=== PATIENT | male | born 1995 | race Caucasian/White ===

== ENCOUNTER 2019-08-28 20:31 | Emergency (ER) | payer OTHER ==
[2019-08-28 20:44] VITALS: BP 146/74
[2019-08-28] MEDS ORDERED: CIPROFLOXACIN HCL/DEXAMETH OTIC DROP 7.5 ML AS ONE (21:38)
[2019-08-28] MEDS ORDERED: IBUPROFEN 800 MG TABLET PO ONE (21:39)
--- NOTE | 2019-08-28 21:42 | ER Document Report ---
HPI - HPI Time Seen by Provider: 08/28/19 21:26 Context: Patient is a 24-year-old male that comes emergency department for chief complaint of left ear pain. Patient states that he dove down into a 10 foot pool, felt a lot of pressure, was blowing on his nose, when he surfaced he held his nose and blew again to try to clear this, felt a lot of pressure and pain. He states that he still feels discomfort in his left ear and it has been continuous since the past day. He denies drainage or bleeding from the ear, he still can hear from the left ear but it is muffled. He denies any fever, vomiting, headache, or any other complaints. He denies any daily medications or past medical history, he is active duty. Past Medical History - General Information source: Patient - Social History Smoking Status: Never Smoker Frequency of alcohol use: None Drug Abuse: None Lives with: Alone Family History: Reviewed & Not Pertinent - Medical History Medical History: Negative Surgical Hx: Negative - Immunizations Immunizations up to date: Yes Hx Diphtheria, Pertussis, Tetanus Vaccination: Yes Vertical Provider Document - CONSTITUTIONAL General Appearance: WD/WN, No Apparent Distress - HEENT HEENT: Atraumatic, Normocephalic. negative: Normal ENT Exam - There is tenderness to the left tragus, there is mild erythema of the left ear canal but there is no swelling, there is slight dullness and a small effusion behind the left tympanic membrane but no bulging, erythema, or perforation. Nontender mastoids. Completely normal ENT exam otherwise. - NECK Neck: Normal Inspection - RESPIRATORY Respiratory: Breath Sounds Normal, No Respiratory Distress - CARDIOVASCULAR Cardiovascular: Regular Rate, Regular Rhythm, Bradycardia - Borderline b radycardia - GI/ABDOMEN Gastrointestinal: Abdomen Soft, Abdomen Non-Tender. negative: Abdomen Tender - BACK Back: Normal Inspection - MUSCULOSKELETAL/EXTREMETIES Musculoskeletal/Extremeties: MAEW, FROM, Non-Tender - NEURO Level of Consciousness: Awake, Alert, Appropriate Motor/Sensory: No Motor Deficit, No Sensory Deficit - DERM Integumentary: Warm, Dry, No Rash Course - Re-evaluation Re-evalutation: Patient has some tenderness over the left tragus and some mild erythema of the ear canal. The eardrum shows some fluid and some borderline loss of landmarks but there is no erythema, bulging, perforation. Normal mastoid. Normal oropharyngeal exam and ENT exam otherwise. No other complaints. Provided with Ciprodex from here for otitis externa, discussed care for suspected middle ear effusion, discussed follow-up and return precautions. Patient states understanding and agreement. - Vital Signs Vital signs: Temp Pulse Resp BP Pulse Ox 98.5 F 55 L 16 146/74 H 98 08/28/19 20:43 08/28/19 20:43 08/28/19 20:43 08/28/19 20:43 08/28/19 20:43 Discharge - Discharge Clinical Impression: Left ear pain Condition: Stable Disposition: HOME, SELF-CARE Additional Instructions: There is pressure and some fluid behind your left eardrum in the middle ear, we need to drain your eustachian tube. I recommend the nasal spray and of the Sudafed as prescribed, take the Motrin for pain if needed. I also recommend based on the inflammation in your ear canal that you take the drops as prescribed, 4 drops, twice a day, for 7 days. Avoid swimming for 1 week. Follow-up with primary care. Return if you worsen including severe headache, vomiting, fever, swelling or redness at the ear, or any other concerning symptoms. Prescriptions: Fluticasone Propionate [Flonase Nasal [place] 50 Mcg/[place] 16 gm] 2 sprays NASL Q12 #1 inhaler Ibuprofen [Motrin 800 mg Tablet] 800 mg PO TID PRN #30 tablet PRN Reason: Pseudoephedrine HCl [Sudafed 12 Hour] 120 mg PO Q12 PRN #14 tablet.er PRN Reason:
== END 2019-08-28 21:49 | disposition home or self-care (01) ==
LOC: ER 20:31
DX: H60.90 Unspecified otitis externa, unspecified ear (principal); H92.02 Otalgia, left ear
CPT/HCPCS: 99282; J3490